=== PATIENT | male | born 1990 | race Hispanic/Latino ===

== ENCOUNTER 2017-06-12 18:01 | Inpatient (IN) | payer BC ==
[2017-06-12 18:10] VITALS: O2SAT 100
--- NOTE | 2017-06-12 18:19 | ED PDOC ---
HPI: Psych/Substance Abuse Time Seen by Provider: 06/12/17 18:06 Chief Complaint (Nursing): Psychiatric Evaluation Chief Complaint (Provider): Crisis eval History Per: Patient, Family, Other (PD) Additional Complaint(s): 26 yo male, PMH of Heroin Abuse and Ulcerative Colitis (On Vianney and Vistaril) , presents to ED BIB EMS and family at beside due to concern for suicidal ideations. Pt offers no physical complaints. Denies SI or HI. Pt reports he said what he did out of anger/sadness because he was at his grandmothers . Pt admits to takin 2 mg of Xanax PO. Police at bedside and report that Pt has a history of being seen for crisis evals at various EDs, and successfully eloping. PD wiling to stay at bedside. Pt placed on 1:1 Past Medical History Reviewed: Nursing Documentation, Vital Signs Vital Signs: Last Vital Signs Temp 99.3 F 06/12/17 18:05 Pulse 133 H 06/12/17 18:05 Resp 20 06/12/17 18:05 BP 111/90 06/12/17 18:05 Pulse Ox 100 06/12/17 18:05 - Medical History PMH: No Chronic Diseases - Surgical History Surgical History: No Surg Hx - Family History Family History: States: No Known Family Hx - Living Arrangements Living Arrangements: With Family - Social History Current smoker - smoking cessation education provided: No Alcohol: Social Drugs: Cannabis, Cocaine, Other (heroin use in past) - Allergies Allergies/Adverse Reactions: Allergies Allergy/AdvReac Type Severity Reaction Status Date / Time No Known Allergies Allergy Verified 06/12/17 18:05 Review of Systems ROS Statement: Except As Marked, All Systems Reviewed And Found Negative Physical Exam - Reviewed Nursing Documentation Reviewed: Yes Vital Signs Reviewed: Yes - Physical Exam Appears: Positive for: Well, Non-toxic, No Acute Distress Head Exam: Positive for: ATRAUMATIC, NORMAL INSPECTION, NORMOCEPHALIC Skin: Positive for: Normal Color, Warm, DRY Eye Exam: Positive for: EOMI, Normal appearance, PERRL ENT: Positive for: Normal ENT Inspection Neck: Positive for: Normal, Painless ROM Cardiovascular/Chest: Positive for: Regular Rate, Rhythm Respiratory: Positive for: CNT, Normal Breath Sounds Gastrointestinal/Abdominal: Positive for: Normal Exam, Bowel Sounds, Soft Back: Positive for: Normal Inspection Extremity: Positive for: Normal ROM Neurologic/Psych: Positive for: Alert, Oriented - Laboratory Results Result Diagrams: 06/12/17 18:35 06/12/17 18:35 - ECG O2 Sat by Pulse Oximetry: 100 Medical Decision Making Medical Decision Making: Pt placed on 1:1 for flight risk CBC, COMP and UA resulted WNL UDS (+) Amphetamines, Cocaine Alcohol 29 EKG ordered Case endorsed to SILVESTRE dean at 20:00 pending EKG review and Crisis eval Disposition - Clinical Impression Clinical Impression: Depression, Substance abuse - Patient ED Disposition Is Patient to be Admitted: Transfer of Care - Disposition Disposition: Transfer of Care Disposition Time: 19:42 Condition: STABLE Forms: [facility] (Georgian) - POA Present On Arrival: None
[2017-06-12 18:44] LABS: BASO # 0.1 K/uL (0.0-0.2); BASO % 0.6 % (0.0-2.0); EOS # 0.1 K/uL (0.0-0.7); EOS % 1.5 % (0.0-4.0); HEMATOCRIT 46.3 % (35.0-51.0); LYMPH # 1.9 K/uL (1.0-4.3); LYMPH % 20.6 % (20.0-40.0); MEAN CELL VOLUME 87.6 fl (80.0-94.0); MEAN CORPUSCULAR HGB CONC 34.2 g/dL (33.0-37.0); MEAN PLATELET VOLUME 9.7 fl (7.2-11.7); MONO # 0.7 K/uL (0.0-0.8); MONO % 7.3 % (0.0-10.0); NEUT # 6.4 K/uL (1.8-7.0); NRBC % 0.1 % (0.0-0.0); WHITE BLOOD COUNT 9.2 K/uL (4.8-10.8)
[2017-06-12 18:53] LABS: URINE BACTERIA OCC (<OCC); URINE BILIRUBIN NEGATIVE (NEGATIVE); URINE BLOOD SMALL (NEGATIVE); URINE COLOR AMBER (YELLOW); URINE GLUCOSE (UA) NEG (Normal); URINE KETONE TRACE mg/dL (NEGATIVE); URINE LEUKOCYTE ESTERASE NEG Leu/uL (Negative); URINE PROTEIN 100 mg/dL (NEGATIVE); URINE UROBILINOGEN 0.2-1.0 mg/dL (0.2-1.0)
[2017-06-12 18:54] LABS: ALB/GLOB RATIO 1.3 (1.0-2.1); ALCOHOL SERUM 29 mg/dl (0-10); ALKALINE PHOSPHATASE 76 U/L (38-126); ALT/SGPT 48 U/L (21-72); AST/SGOT 52 U/L (17-59); BILIRUBIN,TOTAL 0.6 mg/dl (0.2-1.3); BLOOD UREA NITROGEN 8 mg/dl (9-20); CALCIUM 10.2 mg/dL (8.4-10.2); CARBON DIOXIDE 21 mmol/L (22-30); CHLORIDE 106 mmol/L (98-107); GFR AFRICAN-AMERICAN > 60; GLUCOSE,RANDOM 80 mg/dL (75-110); POTASSIUM 3.6 MMOL/L (3.6-5.0); SODIUM 147 mmol/l (132-148); TOTAL PROTEIN 9.1 G/DL (6.3-8.2)
[2017-06-12 18:56] LABS: RBC URINE 14 /hpf (0-3); WBC URINE 5 /hpf (0-5)
--- NOTE | 2017-06-12 20:58 | ED PDOC ---
- Laboratory Results Result Diagrams: 06/12/17 18:35 06/12/17 18:35 - ECG O2 Sat by Pulse Oximetry: 100 - Progress ED Course And Treament: Seen by Crisis. Patient to be admitted to Dr. Lima Diagnosis Adjustment Disorder EKG: Sinus tachycardia 106 bpm; no ectopy;no acute changes reviewed by Dr. Zamarripa CPK noted 560. d/w Dr. Zamarripa. Will given NS 500ml iv bolus. Patient medically cleared with psychiatric admission. Disposition - Clinical Impression Clinical Impression: Adjustment disorder - POA Present On Arrival: None - Disposition Disposition: Admitted as In-Patient Disposition Time: 20:45 Condition: FAIR
[2017-06-12] MEDS ORDERED: Sodium Chloride 0.9% 500 ML IV STA (21:22)
--- NOTE | 2017-06-12 23:18 | PCM.BM ---
<Ty Sun - Last Filed: 06/12/17 23:17> Treatment Plan Problems - Problems identified on initial assessmt Feelings of worthlessness Date Initiated: 06/12/17 Time Initiated: 23:17 Assessment reference: NA Status: Active Treatment assets and liabiliti Patient Assests: adapts well, cooperative, ADL independent, physically healthy, good support system, negotiates basic needs Patient Liabilities: substance abuse - Milieu Protocol Maintain good personal hygiene: daily Remind patient to perform daily oral care , every other day Encourage regular showers, other Assist patient to perform ADL 's (if needed) Maintain personal safety: every shift Educate patient to report safety concerns to staff, every shift Monitor environment for contraband/sharps Medication safety: Monitor for expected outcome, potential side effects: every shift, Assess barriers to learning: every shift, Assess readiness for medication education: every shift <Lina Ruffin - Last Filed: 06/14/17 16:22> Treatment assets and liabiliti Patient Assests: adapts well, cooperative, ADL independent, physically healthy, good support system, negotiates basic needs, good interpersonal skills Patient Liabilities: relationship conflicts, substance abuse, other (pt. facing possible homelessness upon discharge) Family Contact Family involvement: Family/SO is involved Family contact: Patient agrees to contact, Family has been contacted by patient , Telephone contact initiated by staff Family contact comment: Director Records Management received return phone call from patients mother , Ruby. Patients mother reports that neither she nor patients parents will be allowing patient back to return to their homes. Ruby inquired about housing resources and sober living facilities offered by [facility]. Information provided regarding limited housing resources and reservations expressed by sober living facilities when referrals are made for patients who recently expressed SI. Patients mother expressed understanding of the above. Patients mother reports that patient must agree to attend an inpatient substance abuse program in [place] or agree to a sober living house. In the event that patient refuses these option, patient will have to stay in shelters. Ruby states His father is not picking up his phone on purpose. Hes had it. - Goals for Treatment Patient goals for treatment: Patient to continue stabilization on 3 through medication management and group/supportive therapy. Patient to be encouraged to attend groups regularly to promote self-awareness, sobriety, and improve insight , coping skills and self-esteem. Patient to be provided with referral for appropriate level of aftercare to reduce risk of future hospitalizations and ensure safety in the community. Discharge/Continuing Care - Discharge Discharge Criteria: Tolerates medication w/o severe side effects, Free of Suicidal thoughts, Normal sleep pattern, Ability to care for self, Reduction of target symptoms Discharge to:: Assisted - Additional Comments 06/14/17 16:22 PATIENT DISCHARGED AMA. - Treatment Team Participation Patient/Family/SO Statement: 06/14/17 16:21 Director Records Management met with patient to discuss discharge and aftercare. Extensive information regarding risks of continued polysubstance abuse and benefits of long-term substance abuse treatment was provided. Patient expressed understanding of the above and declined inpatient rehab referral. Patients mother dropped off patients belongings prior to patient being discharge. Patient provided with a list of shelters, NA/AA meetings, local rehab/detox facilities and an IOP appointment. Discussed with Family/SO: Yes Was Patient/Family/SO present at Treatment Team Meeting: Yes
[2017-06-12] MEDS ORDERED: Alum-Mag Hydrox-Simethicone Susp (30 mL) PO PRN (23:27)
[2017-06-12] MEDS ORDERED: DiphenhydrAMINE 50 mg/ml Inj IM PRN (23:27)
[2017-06-12] MEDS ORDERED: Magnesium Hydroxide Susp 30 ml UD PO PRN (23:27)
--- NOTE | 2017-06-13 08:01 | CARD ---
APPROVED REPORT EKG Measurement Heart [id number] <Conclusion> Sinus tachycardia Possible Left atrial enlargement Early repolarization Borderline ECG
[2017-06-13 08:59] LABS: T4 9.6 ug/dl (5.5-11.0)
[2017-06-13 09:13] LABS: THYROID STIMULATING HORMONE 0.4 mIU/ML (0.46-4.68)
[2017-06-13 09:33] LABS: BLOOD UREA NITROGEN 15 mg/dl (9-20); CALCIUM 9.4 mg/dL (8.4-10.2); CARBON DIOXIDE 26 mmol/L (22-30); CHLORIDE 107 mmol/L (98-107); GFR AFRICAN-AMERICAN > 60; GLUCOSE,RANDOM 90 mg/dL (75-110); SODIUM 145 mmol/l (132-148)
--- NOTE | 2017-06-13 11:19 | CP.PCM.CON ---
History of Present Illness - History of Present Illness History of Present Illness: 26 y/o male with PMHx of ulcerative colitis seen at bedside after consult for medical evaluation. Pt states he was admitted into the hospital because his parents thought he might hurt himself. Pt states he made a comment that may have made them think this while he was at his grandmother's Monday. Pt states he was on Xanax, Adderall and cocaine at the time. Pt denies any history of anxiety, depression or suicidal ideations. Pt denies F/C/N/V/CP/SOB. Pt states he recently was in an inpatient drug rehab facility and came out on Monday. PMH: ulcerative colitis PSH: denies ALL: PCN Social: 1/2 pack cigs/day. Social EtOH use. Admits to cocaine and heroine addiction Family: lives at home with his father Review of Systems - Review of Systems All systems: reviewed and no additional remarkable complaints except (per HPI) Past Patient History - Past Social History Alcohol: Social Drugs: Cannabis, Cocaine, Other (heroin use in past) - CARDIAC Hx Cardiac Disorders: No Hx Hypertension: No - PULMONARY Hx Respiratory Disorders: No Hx Tuberculosis: No - NEUROLOGICAL Hx Neurological Disorder: No HX Cerebrovascular Accident: No Hx Seizures: No - HEENT Hx HEENT Problems: No - RENAL Hx Chronic Kidney Disease: No - ENDOCRINE/METABOLIC Hx Endocrine Disorders: No - HEMATOLOGICAL/ONCOLOGICAL Hx Blood Disorders: No Hx Cancer: No Hx Human Immunodeficiency Virus (HIV): No - INTEGUMENTARY Hx Dermatological Problems: No - MUSCULOSKELETAL/RHEUMATOLOGICAL Hx Musculoskeletal Disorders: No - GASTROINTESTINAL Hx Colitis: Yes (takes mira) - GENITOURINARY/GYNECOLOGICAL Hx Genitourinary Disorders: No Hx Sexually Transmitted Disorders: No - PSYCHIATRIC Hx Substance Use: Yes (heroin, cocaine, street adderol) - SURGICAL HISTORY Hx Surgeries: No - ANESTHESIA Hx Anesthesia: No Meds Allergies/Adverse Reactions: Allergies Allergy/AdvReac Type Severity Reaction Status Date / Time Penicillins Allergy RASH Verified 06/12/17 23:11 - Medications Medications: Current Medications Acetaminophen (Tylenol 325mg Tab) 650 mg PO Q4 PRN PRN Reason: T>101,headache;pain 1-7 Al Hydrox/Mg Hydrox/Simethicone (Maalox Plus 30 Ml) 30 ml PO Q4 PRN PRN Reason: Dyspepsia Clonidine HCl (Catapres) 0.1 mg PO Q8 PRN PRN Reason: withdrawal symptoms Diphenhydramine HCl (Benadryl) 50 mg IM Q6 PRN PRN Reason: Extrapyramidal S/S Unable PO Diphenhydramine HCl (Benadryl) 50 mg PO HS PRN PRN Reason: Sleep Haloperidol (Haldol) 5 mg PO Q4 PRN PRN Reason: Agitation Haloperidol Lactate (Haldol) 5 mg IM Q4 PRN PRN Reason: Agitation, Unable to Take PO Lorazepam (Ativan) 2 mg IM Q4 PRN PRN Reason: Anxiety/Agitation,Unable PO Lorazepam (Ativan) 2 mg PO Q4 PRN PRN Reason: Anxiety/Agitation Magnesium Hydroxide (Milk Of Magnesia) 30 ml PO HS PRN PRN Reason: Constipation Nicotine (Nicoderm Cq) 1 patch TD DAILY AUGUSTINE Physical Exam - Constitutional Appears: Well, Non-toxic, No Acute Distress - Head Exam Head Exam: ATRAUMATIC, NORMAL INSPECTION, NORMOCEPHALIC - Eye Exam Eye Exam: EOMI, Normal appearance, PERRL Pupil Exam: NORMAL ACCOMODATION, PERRL - ENT Exam ENT Exam: Mucous Membranes Moist, Normal Exam - Neck Exam Neck exam: Positive for: Full Rom, Normal Inspection Additional comments: supple, non-tender - Respiratory Exam Respiratory Exam: Clear to Auscultation Bilateral, NORMAL BREATHING PATTERN Additional comments: no wheezing, no rales - Cardiovascular Exam Cardiovascular Exam: Tachycardia, +S1, +S2 Additional comments: mild tachycardia noted on auscultation. no murmur, no gallop - GI/Abdominal Exam GI & Abdominal Exam: Normal Bowel Sounds, Soft Additional comments: non-tender - Rectal Exam Rectal Exam: Deferred - Extremities Exam Extremities exam: Positive for: normal capillary refill, normal inspection, pedal pulses present - Back Exam Back exam: NORMAL INSPECTION - Neurological Exam Neurological exam: Alert, CN II-XII Intact, Normal Gait, Oriented x3 - Psychiatric Exam Psychiatric exam: Normal Affect, Normal Mood - Skin Skin Exam: Intact, Normal Color Results - Vital Signs Recent Vital Signs: Last Vital Signs Temp 99.3 F 06/12/17 18:05 Pulse 133 H 06/12/17 18:05 Resp 20 06/12/17 18:05 BP 111/90 06/12/17 18:05 Pulse Ox 100 06/12/17 21:30 - Labs Result Diagrams: 06/12/17 18:35 06/13/17 08:10 Labs: Laboratory Results - last 24 hr 06/12/17 06/12/17 06/12/17 18:30 18:30 18:35 WBC RBC Hgb Hct MCV MCH MCHC RDW Plt Count MPV Neut % (Auto) Lymph % (Auto) Wilkes % (Auto) Eos % (Auto) Baso % (Auto) Neut # Lymph # Wilkes # Eos # Baso # Sodium 147 Potassium 3.6 Chloride 106 Carbon Dioxide 21 L Anion Gap 24 H BUN 8 L Creatinine 1.1 Est GFR ( Amer) > 60 Est GFR (Non-Af Amer) > 60 Random Glucose 80 Calcium 10.2 Total Bilirubin 0.6 AST 52 ALT 48 Alkaline Phosphatase 76 Total Creatine Kinase Total Protein 9.1 H Albumin 5.1 H Globulin 4.0 H Albumin/Globulin Ratio 1.3 Triglycerides Cholesterol LDL Cholesterol Direct HDL Cholesterol Thyroxine (T4) Total T3 TSH 3rd Generation Urine Color Kisha Urine Clarity Cloudy Urine pH 5.0 Ur Specific Lester 1.024 Urine Protein 100 Urine Glucose (UA) Neg Urine Ketones Trace Urine Blood Small Urine Nitrate Negative Urine Bilirubin Negative Urine Urobilinogen 0.2-1.0 Ur Leukocyte Esterase Neg Urine RBC (Auto) 14 H Urine Microscopic WBC 5 Ur Squamous Epith Cells < 1 Urine Bacteria Occ H Hyaline Casts 6-10 H Urine Opiates Screen Negative Urine Methadone Screen Negative Ur Barbiturates Screen Negative Ur Phencyclidine Scrn Negative Ur Amphetamines Screen Positive H U Benzodiazepines Scrn Negative U Oth Cocaine Metabols Positive H U Cannabinoids Screen Negative Alcohol, Quantitative 29 H 06/12/17 06/12/17 06/13/17 18:35 21:00 06:55 WBC 9.2 RBC 5.29 Hgb 15.8 Hct 46.3 MCV 87.6 MCH 30.0 MCHC 34.2 RDW 13.0 Plt Count 231 MPV 9.7 Neut % (Auto) 70.0 Lymph % (Auto) 20.6 Wilkes % (Auto) 7.3 Eos % (Auto) 1.5 Baso % (Auto) 0.6 Neut # 6.4 Lymph # 1.9 Wilkes # 0.7 Eos # 0.1 Baso # 0.1 Sodium Potassium Chloride Carbon Dioxide Anion Gap BUN Creatinine Est GFR ( Amer) Est GFR (Non-Af Amer) Random Glucose Calcium Total Bilirubin AST ALT Alkaline Phosphatase Total Creatine Kinase 560 H Total Protein Albumin Globulin Albumin/Globulin Ratio Triglycerides 63 Cholesterol 118 LDL Cholesterol Direct 70 HDL Cholesterol 32 Thyroxine (T4) 9.60 Total T3 1.51 TSH 3rd Generation 0.40 L Urine Color Urine Clarity Urine pH Ur Specific Lester Urine Protein Urine Glucose (UA) Urine Ketones Urine Blood Urine Nitrate Urine Bilirubin Urine Urobilinogen Ur Leukocyte Esterase Urine RBC (Auto) Urine Microscopic WBC Ur Squamous Epith Cells Urine Bacteria Hyaline Casts Urine Opiates Screen Urine Methadone Screen Ur Barbiturates Screen Ur Phencyclidine Scrn Ur Amphetamines Screen U Benzodiazepines Scrn U Oth Cocaine Metabols U Cannabinoids Screen Alcohol, Quantitative 06/13/17 08:10 WBC RBC Hgb Hct MCV MCH MCHC RDW Plt Count MPV Neut % (Auto) Lymph % (Auto) Wilkes % (Auto) Eos % (Auto) Baso % (Auto) Neut # Lymph # Wilkes # Eos # Baso # Sodium 145 Potassium 4.0 Chloride 107 Carbon Dioxide 26 Anion Gap 15 BUN 15 Creatinine 0.9 Est GFR ( Amer) > 60 Est GFR (Non-Af Amer) > 60 Random Glucose 90 Calcium 9.4 Total Bilirubin AST ALT Alkaline Phosphatase Total Creatine Kinase Total Protein Albumin Globulin Albumin/Globulin Ratio Triglycerides Cholesterol LDL Cholesterol Direct HDL Cholesterol Thyroxine (T4) Total T3 TSH 3rd Generation Urine Color Urine Clarity Urine pH Ur Specific Lester Urine Protein Urine Glucose (UA) Urine Ketones Urine Blood Urine Nitrate Urine Bilirubin Urine Urobilinogen Ur Leukocyte Esterase Urine RBC (Auto) Urine Microscopic WBC Ur Squamous Epith Cells Urine Bacteria Hyaline Casts Urine Opiates Screen Urine Methadone Screen Ur Barbiturates Screen Ur Phencyclidine Scrn Ur Amphetamines Screen U Benzodiazepines Scrn U Oth Cocaine Metabols U Cannabinoids Screen Alcohol, Quantitative
--- NOTE | 2017-06-13 13:59 | PCM.PSYCH ---
Initial Psychiatric Evaluation - Initial Psychiatric Evaluation Type of Admission: Voluntary Chief Complaint (in patient's own words): i just got out of rehab and i relapsed History of Present Illness and Precipitating Events: patient with previous diagnosis of polysubstance use history of multiple admissions to rehab recently discharged from two weeks rehab last patient came to know his grandmother became increasingly depressed relapsed on amphetamines, cocaine and xanax in the patient was acting disorganized irritable angry , left the impulsively and when his parents followed him he expressed suicidal ideations with plan to overdose on drugs and accordingly he was brought to er Current Medications: Active Medications Generic Name Dose Route Start Last Admin Trade Name Freq PRN Reason Stop Dose Admin Acetaminophen 650 mg 06/12/17 23:27 Tylenol 325mg Tab PO Q4 PRN T>101,headache;pain 1-7 Al Hydrox/Mg Hydrox/Simethicone 30 ml 06/12/17 23:27 Maalox Plus 30 Ml PO Q4 PRN Dyspepsia Clonidine HCl 0.1 mg 06/12/17 23:22 Catapres PO Q8 PRN withdrawal symptoms Diphenhydramine HCl 50 mg 06/12/17 23:27 Benadryl IM Q6 PRN Extrapyramidal S/S Unable PO Diphenhydramine HCl 50 mg 06/12/17 23:32 Benadryl PO HS PRN Sleep Escitalopram Oxalate 10 mg 06/13/17 13:45 Lexapro PO DAILY AUGUSTINE Haloperidol 5 mg 06/12/17 23:27 Haldol PO Q4 PRN Agitation Haloperidol Lactate 5 mg 06/12/17 23:27 Haldol IM Q4 PRN Agitation, Unable to Take PO Lorazepam 2 mg 06/12/17 23:27 Ativan IM Q4 PRN Anxiety/Agitation,Unable PO Lorazepam 2 mg 06/12/17 23:27 Ativan PO Q4 PRN Anxiety/Agitation Magnesium Hydroxide 30 ml 06/12/17 23:27 Milk Of Magnesia PO HS PRN Constipation Nicotine 1 patch 06/13/17 09:00 Nicoderm Cq TD DAILY AUGUSTINE Past Psychiatric History - Past Psychiatric History Prior Professional Help: multiple inpatient rehab History of Abuse: denied History of ETOH/Drug Use: history of alcohol use patient has history of alcohol use last use was last did not elaborate on amount Pertinent Medical Hx (Current Medical&Sleep Prob, Allergies): Allergies Allergy/AdvReac Type Severity Reaction Status Date / Time Penicillins Allergy RASH Verified 06/12/17 23:11 Mental Status Examination - Personal Presentation Personal Presentation: Looks older than stated age Additional comments: disheveled - Affect Affect: Depressed - Motor Activity Motor Activity: Psychomotor Agitation - Reliability in Providing Information Reliability in Providing Information: Poor, due to altered mood - Speech Speech: Organized - Mood Mood: Depressed - Formal Thought Process Formal Thought Process: No Impairment - Hallucinations/Delusions Additional comments: denied perceptual disturbances non elicited - Obsessions/Compulsions Obsessions: No Compulsions: No - Cognitive Functions Orientation: Person, Place, Situation, Time Attention/Concentration: Easily distracted Abstract Thinking: Sawyer Judgement: Imparied, as evidence by: Lack of insight into illness - Risk Risk: Suicidal - Strength & Assets Inventory Strength & Assets Inventory: Family support - Limitations Additional comments: poor insight DSM 5 DX - DSM 5 DSM 5 Diagnosis: depression amphetamine use disorder alcohol use disorder xanax use disorder - Recommended/Plan of Treatment Treatment Recommendations and Plan of Treatment: patient will be started on antidepressant motivational interview provided referral to inpatient rehab on discharge Discharge Plan and Discharge Criteria: patient needs inpatient rehab
[2017-06-14 09:10] VITALS: BP 126/83; PULSE 102; RESP 20; TEMP 97.3
--- NOTE | 2017-06-14 11:54 | PCM.PYCHDC ---
Mental Status Examination - Mental Status Examination Orientation: Person, Place, Situation, Time Memory: Intact Mood: Neutral Affect: Constricted Attention: WNL Concentration: WNL Association: WNL Fund of Knowledge: WNL Formal Thought Process: No Impairment Description of patient's judgement and insight: poor insight and judgment Suicidal Ideation: No Current Homicidal Ideation?: No Discharge Summary - Discharge Note Reason for Hospitalization: patient brought to er after expressibng passive suicidal ideations Laboratory Data: Abnormal Lab Results 06/13/17 06/13/17 06:55 06:55 Hemoglobin A1c 5.5 RPR Nonreactive Consultations:: List each consultation separately and include: 1. Reason for request. 2. Findings. 3. Follow-up Summary of Hospital Course include:: 1. Description of specific treatment plan utilized for patients during their course of treatmen. 2. Summarize the time- course for resolution of acute symptoms and/or regressed behaviors. 3. Describe issues identified and worked on during hospitalization. 4. Describe medication utilized. 5. Describe medical problems identified and treated. 6. Reassessment of suicide risk Summary of Hospital Course: patient was started on lexapro for depression patient was monitored for symptoms and signs of alcohol withdrawal motivational interviewing provided patient mother was called upon patient consent she offered to help patient to restart in inpatient rehab in [place] however patient declined patient signed a 48 hours notice and requested discharge against medical advise patient was educated about the risk of relapse with risk of overdose on discharge patient understood the possible risk however declined referral to inpatient rehab patient was discharge against medical advise patient mental staus on discharge denied suicidal or homicidal ideations denied perceptual disturbances denied command hallucinations at current mental status not danger to self or others - Final Diagnosis (DSM 5) Condition upon Discharge: FAIR DSM 5: adjustment disorderr with depressed mood polysubstance use includi Disposition: HOME/ ROUTINE - Smoking Cessation Smoking Cessation Medication prescribed: No Reason for not providing: patient declined - Antipsychotic Medications Pt discharged on 2 or more routine antipsychotic medications: No
== END 2017-06-14 12:00 | disposition home or self-care (01) | DRG 881 ==
LOC: H.ER 18:01 → H.ERHOLD 20:45 → H.PSYCH 22:08
PROVIDERS: ADMIT Psychiatry & Neurology Psychiatry; ATTEND Psychiatry & Neurology Psychiatry
PROC: GZHZZZZ Group Psychotherapy (ICD-10-PCS; principal; 2017-06-12)
PROC: GZ58ZZZ Individual Psychotherapy, Cognitive-Behavioral (ICD-10-PCS; 2017-06-12)
DX: F43.21 Adjustment disorder with depressed mood (principal); F11.20 Opioid dependence, uncomplicated; F10.10 Alcohol abuse, uncomplicated; F15.90 Other stimulant use, unspecified, uncomplicated; K51.90 Ulcerative colitis, unspecified, without complications; Z88.0 Allergy status to penicillin